=== PATIENT | male | born 1950 | race Caucasian/White ===

== ENCOUNTER 2017-12-30 07:52 | Day surgery (SDC) | payer MEDICARE, OTHER ==
--- NOTE | 2017-12-18 09:30 | PCM.PREANE ---
Preanesthetic Assessment - Anesthesia/Transfusion/Family Hx Anesthesia History: Prior Anesthesia Without Reaction Family History of Anesthesia Reaction: No Intubation History: Unknown - Review of Systems Pulmonary: No Symptoms (COPD/TESSIE with use of CPAP noted/quit smoking 1995, ETOH: ), Cough (chronic smoker's cough noted) Cardiovascular: No Symptoms (History of A-fib, CAD, HTN, Paroxysmal Ventricular Tachycardia), Palpitations (History of Atrial fibrillation with RVR), Dyspnea on Exertion Gastrointestinal: No Symptoms (GERD, Inability to wean from PPI/Last colonoscopy 2012, with 3 tubular adenomatous colon polyps removed.), Nausea Neurological: Dizziness, Syncope Other: Reports: Easy Bruising, Diabetes (Borderline- low dose metformin noted, AM blood sugar=), Depression, Anxiety - Physical Assessment NPO Status Date: 12/18/17 Height: 1.8 m Mental Status: Alert & Oriented x3 - Lab Values: Lab values reviewed and noted within acceptable ranges to proceed with scheduled procedure. - Imaging/EKG Impressions: EKG: SR, borderline left axis deviation, abnormal R-wave progression, late transition Echocardiogram: EF 60-65%, Grade I Diastolic dysfunction, mild aortic regurgitation Stress Test 2015: negative - Allergies Allergies/Adverse Reactions: Allergies Allergy/AdvReac Type Severity Reaction Status Date / Time No Known Allergies Allergy Verified 01/09/15 08:33 - Anesthesia Plan Pre-Op Medication Ordered: None - Acknowledgements Anesthesia Type Planned: MAC Pt an Appropriate Candidate for the Planned Anesthesia: Yes Alternatives and Risks of Anesthesia Discussed w Pt/Guardian: Yes Pt/Guardian Understands and Agrees with Anesthesia Plan: Yes PreAnesthesia Questionnaire - HOME MEDS Home Medications: Home Meds . [Unable to Verify Home Med List] 01/09/15 [History]
[~2017-12-30 07:52] MED LIST: Lactated Ringers 1,000 ML IV SCH; Lidocaine 1% 2 ML ONE; Lidocaine 1%/Sod Bicarbonate in NS 8.4% 1 ML Syringe IDERM PRN; Propofol 200 MG/20 ML SDV ONE; Sodium Chloride 0.9% 10 ML Syringe FLUSH PRN
--- NOTE | 2017-12-30 08:14 | PCM.PREANE ---
Preanesthetic Assessment - Procedure Proposed Procedure: EGD & Colonoscopy - Anesthesia/Transfusion/Family Hx Anesthesia History: Prior Anesthesia Without Reaction Family History of Anesthesia Reaction: No Transfusion History: No Prior Transfusion(s) Intubation History: Unknown - Review of Systems General: No Symptoms Pulmonary: No Symptoms Cardiovascular: No Symptoms Gastrointestinal: No Symptoms Neurological: Numbness (balls of feet per patient ) Other: Reports: Easy Bruising, Diabetes (Borderline- low dose metformin noted, AM blood sugar=), Depression, Anxiety - Physical Assessment NPO Status Date: 12/18/17 Pulse: 71 O2 Sat by Pulse Oximetry: 95 Respiratory Rate: 16 Blood Pressure: 126/90 Temperature: 36.5 C Height: 1.8 m Weight: 86.046 kg ASA Class: 2 Mental Status: Alert & Oriented x3 Airway Class: Mallampati = 1 Dentition: Reports: Normal Dentition Thyro-Mental Finger Breadths: 3 Mouth Opening Finger Breadths: 5 ROM/Head Extension: Full Lungs: Clear to Auscultation, Normal Respiratory Effort Cardiovascular: Regular Rate, Regular Rhythm - Allergies Allergies/Adverse Reactions: Allergies Allergy/AdvReac Type Severity Reaction Status Date / Time No Known Allergies Allergy Verified 12/27/17 13:21 - Blood Blood Available: No - Anesthesia Plan Pre-Op Medication Ordered: None - Acknowledgements Anesthesia Type Planned: MAC Pt an Appropriate Candidate for the Planned Anesthesia: Yes Alternatives and Risks of Anesthesia Discussed w Pt/Guardian: Yes Pt/Guardian Understands and Agrees with Anesthesia Plan: Yes PreAnesthesia Questionnaire HEENT History: Reports: None Cardiovascular History: Reports: Afib, CAD, High Cholesterol, Hypertension, Other (See Below) Other Cardiovascular History: aortic regurgitation, palpitations, ventricular tachycardia, atrial flutter, pvc's, pacs, chest pain Respiratory History: Reports: COPD, Sleep Apnea, SOB Gastrointestinal History: Reports: Colon Polyp Genitourinary History: Reports: BPH, Other (See Below) Other Genitourinary History: erectile dysfunction CALENDER ROLL OPERATOR History: Reports: None Musculoskeletal History: Reports: None Neurological History: Reports: Other (See Below) Other Neuro History: dizziness, syncope Psychiatric History: Reports: Anxiety, Depression, Other (See Below) Other Psychiatric History: insomnia Endocrine/Metabolic History: Reports: Diabetes, Type II Hematologic History: Reports: None Immunologic History: Reports: None Oncologic (Cancer) History: Reports: None Dermatologic History: Reports: Other (See Below) Other Dermatologic History: skin nodule - Past Surgical History Head Surgeries/Procedures: Reports: None HEENT Surgical History: Reports: None Cardiovascular Surgical History: Reports: None Respiratory Surgical History: Reports: None GI Surgical History: Reports: Colonoscopy, Hernia Repair/Other Female Surgical History: Reports: None Male Surgical History: Reports: None Endocrine Surgical History: Reports: None Neurological Surgical History: Reports: None Musculoskeletal Surgical History: Reports: None Oncologic Surgical History: Reports: None Dermatological Surgical History: Reports: None - SUBSTANCE USE Smoking Status *Q: Former Smoker Recreational Drug Use History: No - HOME MEDS Home Medications: Home Meds Allopurinol [Zyloprim] 150 mg PO DAILY 12/27/17 [History] Ascorbate Calcium [Vitamin C] 500 mg PO DAILY 12/27/17 [History] Aspirin [Halfprin] 81 mg PO DAILY 12/27/17 [History] Diltiazem [Cardizem CD] 120 mg PO DAILY 12/27/17 [History] Escitalopram [Lexapro] 20 mg PO DAILY 12/27/17 [History] Fish Oil/[place]-3 Fatty Acids [Fish Oil 1,000 MG] 1 gm PO DAILY 12/27/17 [History ] Losartan [Cozaar] 50 mg PO DAILY 12/27/17 [History] Multivitamin [Gummi Bear Multivitamin] 1 tab PO DAILY 12/27/17 [History] Omeprazole Magnesium [Prilosec] 20 mg PO QAM 12/27/17 [History] Propafenone [Rythmol] 150 mg PO DAILY 12/27/17 [History] Rosuvastatin [Crestor] 5 mg PO DAILY 12/27/17 [History] Tamsulosin HCl [Flomax] 0.4 mg PO DAILY 12/27/17 [History] Tiotropium [Spiriva Handihaler] 2 puff INH DAILY 12/27/17 [History] metFORMIN [Glucophage XR] 500 mg PO BID 12/27/17 [History] - CURRENT (IN HOUSE) MEDS Current Meds: Current Medications Lactated Ringer's (Ringers, Lactated) 1,000 mls @ 125 mls/hr IV ASDIRECTED MAINOR Stop: 12/30/17 23:00 Lidocaine/Sodium Bicarbonate (Buffered Lidocaine 1% In Ns 8.4%) 0.25 ml IDERM ONETIME PRN PRN Reason: Prior to IV Start Stop: 12/30/17 18:00 Sodium Chloride (Saline Flush) 10 ml FLUSH ASDIRECTED PRN PRN Reason: Keep Vein Open Stop: 12/30/17 18:00 Discontinued Medications Lactated Ringer's (Ringers, Lactated) 1,000 mls @ 125 mls/hr IV ASDIRECTED MAINOR Stop: 12/19/17 23:00 Lidocaine HCl (Xylocaine-Mpf 1%) Confirm Administered Dose 2 mls @ as directed .ROUTE .STK-MED ONE Stop: 12/30/17 06:53 Lidocaine HCl (Xylocaine-Mpf 1%) Confirm Administered Dose 2 mls @ as directed .ROUTE .STK-MED ONE Stop: 12/30/17 06:53 Lidocaine/Sodium Bicarbonate (Buffered Lidocaine 1% In Ns 8.4%) 0.25 ml IDERM ONETIME PRN PRN Reason: Prior to IV Start Stop: 12/19/17 18:00 Propofol (Diprivan 20 Ml) Confirm Administered Dose 200 mg .ROUTE .STK-MED ONE Stop: 12/30/17 06:52 Propofol (Diprivan 20 Ml) Confirm Administered Dose 200 mg .ROUTE .STK-MED ONE Stop: 12/30/17 06:53 Sodium Chloride (Saline Flush) 10 ml FLUSH ASDIRECTED PRN PRN Reason: Keep Vein Open Stop: 12/19/17 18:00
--- NOTE | 2017-12-30 08:25 | PCM.HP ---
H&P History of Present Illness - General Date of Service: 12/30/17 Admit Problem/Dx: Adenomatous colon polyps, reflux, inability to wean PPI, nausea, precordial pain , epigastric tenderness Source of Information: Patient - History of Present Illness Initial Comments - Free Text/Narative: The patient is a 67-year-old malereferred by Dr. Tomas for surveillance colonoscopy for hx of colon polyp The patient presents today for surveillance colonoscopy and diagnostic EGD. He was last evaluated in the clinic on 11/07. He denies changes to medical history since that visit. He did finish prep and stools were clear. He has had extensive cardiac testing. Per Dr. Fisher's 12/16 note, " The patient is cleared for low risk procedure such as colonoscopy without any additional testing. Coronary artery disease risk assessment. The patient does have increased risk and is a suitable candidate for a stress test. We will proceed with this as the patient has significant concerns about coronary artery events occurring despite treatment." Anesthesia did review this case and it was felt patient could proceed with colonoscopy. The patient denies any constipation/ diarrhea/ hematochezia/ melena/blood on tissue paper/hemorrhoids. Has 1BMs daily. Bowel movements are described as regular and easy to pass. No significantunintentional weight loss. No change in stool caliber. He does occasional pencil like stools. Denies history of ulcerative colitis or Crohn's disease. Denies any family history of inflammatory bowel disease or GI cancers. Last colonoscopy was 2012, three tubular adenomatous colon polyps were removed. Hx of periumbilicalabdominal pain since 2016 after lifting something heavy. He has had hernia repair in this area in 2014. He did see Dr. Muse in 2016 regarding complaint, US was offered, patient declined at that time due to insurance coverage. I did repeat an US after last visit and "Multiple images were obtained and reveal no evidence of a fluid collection or incarcerated bowel or hernia." He did have reflux, problems until started PPI. Symptoms are well controlled with PPI. He thinks he has been on this for 10 years. He has not tried to wean. NO: heartburn. He has some Nausea, after eating lately. NO: vomiting, or dysphagia. Last EGD was never. No right upper abdominal pain. He has some epigastric soreness/LUQ, he relates this to working/muscle soreness. No nelly colored stools. At times can have light colored stools.NO pain/diarrhea with fatty meals. Also reports a lump to left chest. - Related Data Allergies/Adverse Reactions: Allergies Allergy/AdvReac Type Severity Reaction Status Date / Time No Known Allergies Allergy Verified 12/30/17 08:40 Home Medications: Home Meds Allopurinol [Zyloprim] 150 mg PO DAILY 12/27/17 [History] Ascorbate Calcium [Vitamin C] 500 mg PO DAILY 12/27/17 [History] Aspirin [Halfprin] 81 mg PO DAILY 12/27/17 [History] Diltiazem [Cardizem CD] 120 mg PO DAILY 12/27/17 [History] Escitalopram [Lexapro] 20 mg PO DAILY 12/27/17 [History] Fish Oil/[place]-3 Fatty Acids [Fish Oil 1,000 MG] 1 gm PO DAILY 12/27/17 [History ] Losartan [Cozaar] 50 mg PO DAILY 12/27/17 [History] Multivitamin [Gummi Bear Multivitamin] 1 tab PO DAILY 12/27/17 [History] Omeprazole Magnesium [Prilosec] 20 mg PO QAM 12/27/17 [History] Propafenone [Rythmol] 150 mg PO DAILY 12/27/17 [History] Rosuvastatin [Crestor] 5 mg PO DAILY 12/27/17 [History] Tamsulosin HCl [Flomax] 0.4 mg PO DAILY 12/27/17 [History] Tiotropium [Spiriva Handihaler] 2 puff INH DAILY 12/27/17 [History] metFORMIN [Glucophage XR] 500 mg PO BID 12/27/17 [History] Past Medical History HEENT History: Reports: None Cardiovascular History: Reports: Afib, CAD, High Cholesterol, Hypertension, Other (See Below) Other Cardiovascular History: aortic regurgitation, palpitations, ventricular tachycardia, atrial flutter, pvc's, pacs, chest pain Respiratory History: Reports: COPD, Sleep Apnea, SOB Gastrointestinal History: Reports: Colon Polyp Genitourinary History: Reports: BPH, Other (See Below) Other Genitourinary History: erectile dysfunction MEDICAL RESEARCH ASSISTANT History: Reports: None Musculoskeletal History: Reports: None Neurological History: Reports: Other (See Below) Other Neuro History: dizziness, syncope Psychiatric History: Reports: Anxiety, Depression, Other (See Below) Other Psychiatric History: insomnia Endocrine/Metabolic History: Reports: Diabetes, Type II Hematologic History: Reports: None Immunologic History: Reports: None Oncologic (Cancer) History: Reports: None Dermatologic History: Reports: Other (See Below) Other Dermatologic History: skin nodule - Past Surgical History Head Surgeries/Procedures: Reports: None HEENT Surgical History: Reports: None Cardiovascular Surgical History: Reports: None Respiratory Surgical History: Reports: None GI Surgical History: Reports: Colonoscopy, Hernia Repair/Other Female Surgical History: Reports: None Male Surgical History: Reports: None Endocrine Surgical History: Reports: None Neurological Surgical History: Reports: None Musculoskeletal Surgical History: Reports: None Oncologic Surgical History: Reports: None Dermatological Surgical History: Reports: None Social & Family History - Tobacco Use Smoking Status *Q: Former Smoker Used Tobacco, but Quit: Yes Month/Year Tobacco Last Used: 1995 - Caffeine Use Caffeine Use: Reports: Coffee, Energy Drinks - Recreational Drug Use Recreational Drug Use: No Drug Use in Last 12 Months: No H&P Review of Systems - Review of Systems: Review Of Systems: See Below Free Text/Narrative: Denies any exertional chest pain. He has exertional shortness of breath with stair climbing due to COPD. No history of any easy bleeding. He does report easy bruising. No personal or familial history of clotting or bleeding disorders. No history of anesthetic complications. No history of familial anesthetic complications. Denies presence of chest pain. He previously he will have a funny feeling in his central chest at times. He is not sure if it is exertional. Reports this happened only once since last visit. NO dizziness, light headedness, syncope or near syncope. He does drinking 5 hour energy drinks. He has hx of atrial fibrillation. Takes ASA. He does have some lower extremity edema. Resolves with sleeping. NO: dyspnea at rest, orthopnea, claudication, wheezing. Has obstructive sleep apnea uses CPAP. Reportschronic cough-smoker's cough. NO: upper respiratory symptoms in the last two weeks. No history of blood thinner use, with exception of ASA. No history of anemia. NO: joint replacement and heart valve replacement. No history of seizure or stroke. No fever, chills, or nightsweats. Has had prior cardiology evaluation, now follows with PCP. NO prior pulmonology evaluation. Holter 2018: INTERPRETATION 1. Sinus rhythm was predominant throughout the recording period with heart rates ranging from 55 beats per minute to 141 beats per minute and averaging 74 beats per minute. 2. There were 15 isolated premature ventricular contractions (PVCs). There were no sustained ventricular dysrhythmias noted. 3. There were 25 isolated premature atrial contractions. There were no runs of supraventricular tachycardia, atrial flutter or atrial fibrillation noted. 4. There was no evidence of high-grade sinoatrial (SA) or atrioventricular (AV) node conduction block. 5. There were no the pathologic ST changes noted. 6. The patient did not report any symptoms during the recording. IMPRESSION: The patient's Holter monitor recording was overall unremarkable. It revealed sinus rhythm with mild intermittent sinus bradycardia and mild intermittent sinus tachycardia. There were rare premature atrial contractions ( PACs) and rare premature ventricular contractions (PVCs) noted. The patient did not report any symptoms during the recording. EK EKG Severity - OTHERWISE NORMAL ECG - EKG Impression Sinus rhythm Borderline left axis deviation Abnormal R-wave progression, late transition Echo: 2018 1. Left ventricular ejection fraction is 60 to 65%. 2. Impaired left ventricular relaxation with normal LV filling pressures-( Grade I Diastolic Dysfunction). 3. Mild aortic regurgitation Stress test: 2014 Normal treadmill EKG stress test. NO ischemia, patient did not achieve optimal stress. Normal EF. All other systems reviewed and were negative except as per history of present illness. Exam - Exam Exam: See Below - Vital Signs Vital Signs: Last Vital Signs Temp 97.7 F 12/30/17 08:16 Pulse 71 12/30/17 08:16 Resp 16 12/30/17 08:16 BP 126/90 12/30/17 08:16 Pulse Ox 95 12/30/17 08:16 Weight: 86.046 kg - Exam General: Alert, Oriented HEENT: Conjunctiva Clear Lungs: Clear to Auscultation, Normal Respiratory Effort Cardiovascular: Regular Rate, Regular Rhythm, Normal S1, Normal S2 GI/Abdominal Exam: Soft, Non-Tender Back Exam: Normal Inspection Extremities: Normal Inspection, Non-Tender, No Pedal Edema, Normal Capillary Refill Peripheral Pulses: 1+: Radial (L), Radial (R) Skin: Warm, Dry, Intact, Other (possible lipoma to left chest wall ) Neuro Extensive - Mental Status: Alert, Oriented x3, Normal Mood/Affect, Normal Cognition, Memory Intact Neuro Extensive - Motor, Sensory, Reflexes: Normal Reflexes Psychiatric: Alert, Normal Affect, Normal Mood - Problem List (1) Encounter for colonoscopy due to history of adenomatous colonic polyps SNOMED Code(s): 651895692, 036954262 ICD Code: Z12.11 - ENCOUNTER FOR SCREENING FOR MALIGNANT NEOPLASM OF COLON; Z86.010 - PERSONAL HISTORY OF COLONIC POLYPS Status: Acute Current Visit: Yes (2) Acid reflux SNOMED Code(s): 440743563 ICD Code: K21.9 - GASTRO-ESOPHAGEAL REFLUX DISEASE WITHOUT ESOPHAGITIS Status: Acute Current Visit: Yes Qualifiers: Esophagitis presence: esophagitis presence not specified Qualified Code(s) : K21.9 - Gastro-esophageal reflux disease without esophagitis (3) Nausea SNOMED Code(s): 241370861 ICD Code: R11.0 - NAUSEA Status: Acute Current Visit: Yes (4) Epigastric discomfort SNOMED Code(s): 917501874 ICD Code: R10.13 - EPIGASTRIC PAIN Status: Acute Current Visit: Yes Problem List Initiated/Reviewed/Updated: Yes Orders Last 24hrs: Active Orders 24 hr Category Date Time Status Blood Glucose Check, Bedside [RC] ONETIME Care 12/30/17 00:01 Active Peripheral IV Care [RC] . DIRECTED Care 12/30/17 00:01 Active Peripheral IV Care [RC] . DIRECTED Care 12/30/17 00:01 Active Verify Patient Consent Obtain [RC] ASDIRECTED Care 12/30/17 00:01 Active Verify Patient Consent Obtain [RC] ASDIRECTED Care 12/30/17 00:01 Inactive Lactated Ringers [Ringers, Lactated] 1,000 ml Med 12/30/17 00:01 Active IV ASDIRECTED Lidocaine 1%/Sod Bicarbonate [Buffered Lidocaine 1% in Med 12/30/17 00:01 Active NS 8.4%] 0.25 ml IDERM ONETIME PRN Sodium Chloride 0.9% [Saline Flush] Med 12/30/17 00:01 Active 10 ml FLUSH ASDIRECTED PRN Medication Administration Instruction [OM.PC] Routine Oth 12/30/17 00:01 Ordered Peripheral IV Insertion Adult [OM.PC] Routine Oth 12/30/17 00:01 Ordered Medication Orders Lactated Ringer's (Ringers, Lactated) 1,000 mls @ 125 mls/hr IV ASDIRECTED MAINOR Stop: 12/30/17 23:00 Lidocaine/Sodium Bicarbonate (Buffered Lidocaine 1% In Ns 8.4%) 0.25 ml IDERM ONETIME PRN PRN Reason: Prior to IV Start Stop: 12/30/17 18:00 Sodium Chloride (Saline Flush) 10 ml FLUSH ASDIRECTED PRN PRN Reason: Keep Vein Open Stop: 12/30/17 18:00 Assessment/Plan Comment:: 67yr male with history of adenomatous colon polyps, need for surveillance colonoscopy He has reflux, inability to wean PPI, nausea, precordial pain, epigastric tenderness, need for EGD Patient can perform 4 METS of physical activity without chest pain. Has exertional shortness of breath with stair climbing with COPD. Possible left chest wall lipoma PLAN: We discussed performing a surveillancecolonoscopy. We discussed the procedure and post operative expectations. Discussed possibly completing EGD , patient is agreeable to this. This procedure will be done at [facility] due to cardiac history. He has a possible left chest wall lipoma, advised US of this area, he will consider. I personally reviewed the patient's previous medical records and laboratory studies. Patient verbalized understanding and agreed with care plan. CEE Peña General Surgery Department [facility]
[2017-12-30] MEDS ORDERED: Simethicone Drops 40 MG/0.6 ML 30 ML Bottle ONE (08:56)
--- NOTE | 2017-12-30 09:20 | PCM48HPAN ---
Post Anesthesia Note - EVALUATION WITHIN 48HRS OF ANESTHETIC Vital Signs in Normal Range: Yes Patient Participated in Evaluation: Yes Respiratory Function Stable: Yes Airway Patent: Yes Cardiovascular Function Stable: Yes Hydration Status Stable: Yes Pain Control Satisfactory: Yes Nausea and Vomiting Control Satisfactory: Yes Mental Status Recovered: Yes Pulse Rate: 71 SaO2: 95 Resp Rate: 16 Temperature: 36.5 C Blood Pressure: 126/90
--- NOTE | 2017-12-30 10:46 | OR ---
DATE OF OPERATION: 12/30/2017 SURGEON: Nayan Muse MD PREOPERATIVE DIAGNOSIS: History of gastroesophageal reflux with prolonged use of proton pump inhibitors. POSTOPERATIVE DIAGNOSIS: History of gastroesophageal reflux with prolonged use of proton pump inhibitors. OPERATION PERFORMED: Esophagogastroduodenoscopy. FINDINGS: Normal study to the second portion of the duodenum. There is a hiatal hernia with some incompetence of the hiatus, but the Z-line located at 40 cm was free of any acute disease. Stomach did not show any acute pathology, as did the balance of the esophagus, duodenum. ANESTHESIA: Procedure done under IV sedation, esophagogastroduodenoscopy to the second portion of the duodenum. DESCRIPTION OF PROCEDURE: The patient was taken to the endoscopy room, placed in a supine position, connected to monitoring equipment, given IV sedation, and a bite block was inserted. NG was placed in left lateral position. Video Olympus gastroscope placed in the posterior oropharynx under direct vision, threaded past the cricopharyngeus, down the esophagus, into the stomach. The stomach was insufflated and the scope passed through the pylorus to the second portion of the duodenum. Slowly withdrawn showing the normal second portion of the duodenum, duodenal bulb, pyloric channel. Antrum, body, and cardia of the stomach were viewed and J maneuver was performed showing incompetence of the hiatus. Fundus, body, and cardia were normal. Scope withdrawn to the GE junction which did not show any acute pathology. It was located at 40 cm. Rest of the esophagus was viewed, the scope was withdrawn, and was normal. The patient tolerated the procedure and IV sedation continued for colonoscopy. ESTIMATED BLOOD LOSS: MMODAL /[id number]
[2017-12-30 12:18] VITALS: BP 143/95
--- NOTE | 2017-12-30 13:25 | OR ---
DATE OF OPERATION: 12/30/2017 SURGEON: Nayan Muse MD PREOPERATIVE DIAGNOSIS: Surveillance colonoscopy. POSTOPERATIVE DIAGNOSIS: Surveillance colonoscopy. OPERATION PERFORMED: Colonoscopy to the cecum with removal of a polyp at 70 cm, and diminutive polyp completely removed by cold biopsy forceps, done under IV sedation. FINDINGS: There were no angiodysplasias, large tumor masses, ulcerations, or diverticulum. There are, however, notable hemorrhoids. ANESTHESIA: Procedure done under IV sedation. DESCRIPTION OF PROCEDURE: The patient having been taken to the endoscopy room for upper GI endoscopy and connected to monitoring equipment, and given IV sedation. The IV sedation was continued for colonoscopy. He was placed in the left lateral position. Perianal area showed hemorrhoidal tags and external hemorrhoid. Rectal exam showed good sphincter tone. A video Olympus colonoscope was then introduced into the rectum and threaded up without problem to the cecum, where the appendicular orifice was noted. Prep was excellent. [place] Cleansing Score grade A throughout the colon, and the scope was slowly withdrawn showing the cecum, ascending colon, transverse colon, descending colon, sigmoid colon, and rectum. A polyp was noted at 70 cm which was diminutive and this was removed by cold biopsy forceps and sent to Pathology. The patient tolerated the procedure, and sent to the recovery room in a stable condition. Specimen sent to Pathology in a labeled container. RECOMMENDATION: Repeat colonoscopy per pathology. ESTIMATED BLOOD LOSS: MMODAL /[id number]
== END 2017-12-30 10:08 | disposition home or self-care (01) ==
LOC: JD.SDS 07:52
PROVIDERS: ATTEND Surgery
DX: Z12.11 Encounter for screening for malignant neoplasm of colon (principal); D12.4 Benign neoplasm of descending colon; K64.4 Residual hemorrhoidal skin tags; K21.9 Gastro-esophageal reflux disease without esophagitis; K44.9 Diaphragmatic hernia without obstruction or gangrene; I10 Essential (primary) hypertension; J44.9 Chronic obstructive pulmonary disease, unspecified; E11.9 Type 2 diabetes mellitus without complications; G47.33 Obstructive sleep apnea (adult) (pediatric); Z99.89 Dependence on other enabling machines and devices; I48.92 Unspecified atrial flutter; F41.9 Anxiety disorder, unspecified; F32.9 Major depressive disorder, single episode, unspecified; Z86.010 Personal history of colon polyps; Z87.891 Personal history of nicotine dependence; Z79.82 Long term (current) use of aspirin; Z79.84 Long term (current) use of oral hypoglycemic drugs; Z79.899 Other long term (current) drug therapy
CPT/HCPCS: 43235; 45380; 82962; A9270; J2704; J7120; 00813; J2001

== ENCOUNTER 2021-07-04 08:59 | Day surgery (SDC) | payer MEDICARE, OTHER ==
[~2021-07-04 08:59] MED LIST changes: -Lidocaine 1% 2 ML ONE; -Propofol 200 MG/20 ML SDV ONE; -Sodium Chloride 0.9% 10 ML Syringe FLUSH PRN; +Sodium Chloride 0.9% 10 ML Syringe FLUSH SCH
[2021-07-04] MEDS ORDERED: Propofol 200 MG/20 ML SDV ONE ×2 (11:53→12:39)
[2021-07-04] MEDS ORDERED: fentaNYL 100 MCG/2 ML SDV ONE (11:53)
[2021-07-04] MEDS ORDERED: Lidocaine 1% 4 ML ONE (11:55)
[2021-07-04 13:51] VITALS: BP 122/74; PULSE 72
== END 2021-07-04 13:33 | disposition home or self-care (01) ==
LOC: JD.SDS 08:59
PROVIDERS: ATTEND Surgery
DX: D12.2 Benign neoplasm of ascending colon (principal); D12.4 Benign neoplasm of descending colon; K52.9 Noninfective gastroenteritis and colitis, unspecified; K57.31 Diverticulosis of large intestine without perforation or abscess with bleeding; K64.8 Other hemorrhoids; K64.4 Residual hemorrhoidal skin tags; K21.9 Gastro-esophageal reflux disease without esophagitis; F41.9 Anxiety disorder, unspecified; I48.92 Unspecified atrial flutter; I25.10 Atherosclerotic heart disease of native coronary artery without angina pectoris; I50.9 Heart failure, unspecified; J44.9 Chronic obstructive pulmonary disease, unspecified; F32.A Depression, unspecified; M10.9 Gout, unspecified; I11.0 Hypertensive heart disease with heart failure; E78.00 Pure hypercholesterolemia, unspecified; G43.909 Migraine, unspecified, not intractable, without status migrainosus; G47.30 Sleep apnea, unspecified; E11.9 Type 2 diabetes mellitus without complications; Z79.899 Other long term (current) drug therapy; Z79.82 Long term (current) use of aspirin; Z79.84 Long term (current) use of oral hypoglycemic drugs; Z98.890 Other specified postprocedural states; Z87.891 Personal history of nicotine dependence
CPT/HCPCS: 45380; 82947; J2704; J3010; J7120; 00811; 88305